=== PATIENT | female | born 1955 | race African-American/Black ===

== ENCOUNTER 2020-07-27 10:23 | Emergency (ER) | payer OTHER ==
[~2020-07-27] VITALS: Ht 167.6 cm; Wt 112.9 kg
[2020-07-27] MEDS ORDERED: PREDNISONE 20MG TABLET PO ONE (11:15)
[2020-07-27] MEDS ORDERED: ALBUTEROL (0.083%) 2.5MG/3ML NEB HHN ONE ×2 (11:15→13:45)
[2020-07-27] MEDS ORDERED: IPRATROPIUM BROMIDE (0.02%) 0.5MG/2.5ML NEB HHN ONE ×2 (11:15→13:45)
[2020-07-27 11:37] LABS: HEMATOCRIT. 37.5 % (36.0-48.0); HEMOGLOBIN. 12.2 g/dL (12.0-16.0); MEAN CORPUSCULAR HEMOGLOBIN 27.1 pg (28.0-32.0); MEAN CORPUSCULAR VOLUME 83.5 fL (81.0-99.0); MEAN PLATELET VOLUME 8.6 fl (7.4-10.4); PLATELET 246 x1000/uL (130-400); RED BLOOD CELL COUNT 4.49 mill/uL (4.2-5.4); RED CELL DISTRIBUTION WIDTH 16.8 % (11.6-14.6)
[2020-07-27 11:43] LABS: CHLORIDE 108 mEq/L (98-107)
[2020-07-27 12:23] LABS: PLATELET ESTIMATE NORMAL
[2020-07-27 16:30] VITALS: BP 150/78
== END 2020-07-27 16:30 | disposition home or self-care (01) ==
LOC: ER 10:23 → EDBD 10:23 → ER 16:30
DX: J98.01 Acute bronchospasm (principal); Z77.110 Contact with and (suspected) exposure to air pollution; E11.9 Type 2 diabetes mellitus without complications; I10 Essential (primary) hypertension; Z88.8 Allergy status to other drugs, medicaments and biological substances; Z90.710 Acquired absence of both cervix and uterus
CPT/HCPCS: 36415; 71045; 80048; 83880; 84484; 85025; 93005; 94640; 99285; J7512; Z7610